=== PATIENT | male | born 1945 | race Caucasian/White ===

== ENCOUNTER → 2020-04-27 | Outpatient (CLI) | payer OTHER | END | disposition home or self-care (01) | LOC: CVU 13:52 | PROVIDERS: ATTEND Orthopaedic Surgery | DX: I06.1 Rheumatic aortic insufficiency (principal); I10 Essential (primary) hypertension; E78.5 Hyperlipidemia, unspecified; Z85.828 Personal history of other malignant neoplasm of skin; Z95.818 Presence of other cardiac implants and grafts | CPT/HCPCS: 93306 ==